=== PATIENT | female | born 1970 | race Caucasian/White ===

== ENCOUNTER 2025-01-15 11:20 | Outpatient (AMB) | payer BC, SELFPAY ==
[2025-01-15 11:46] VITALS: BP 121/80; PULSE 61; RESP 14; TEMP 36.6; O2SAT 96; BMI 27.4
--- NOTE | 2025-01-15 11:46 | AMB.GYNCLNOT ---
Vital Signs 01/15/25 11:46 Height 1.65 m Height Method Stated Weight 74.843 kg Weight Measurement Method Standing Scale BMI 27.4 BP 121/80 Blood Pressure Source Automatic Cuff Blood Pressure Location Right Upper Arm Position Sitting Respiration 14 Pulse 61 Pulse Source Monitor Temp 98 F Temp Source Oral Pulse Oximetry (%) 96 Oxygen Delivery Method Room Air Allergies/Home Meds Allergies & Medications Allergies No Known Allergies Allergy (Verified 01/15/25 11:47) Medication Reconciliation lactobacillus comb no.10 20 billion cell capsule (Probiotic) 20,000 mmu cells PO QDAY 04/28/22 [History Confirmed 01/15/25] propranolol 10 mg tablet 1 tab PO DAILY 04/28/22 [History Confirmed 01/15/25] turmeric 400 mg capsule 1,500 mg PO BID 04/28/22 [History Confirmed 01/15/25] albuterol sulfate 90 mcg/actuation aerosol inhaler (Ventolin HFA) 1 puff inhalation QID PRN Wheezing 05/27/22 [History Confirmed 01/15/25] cyclobenzaprine 5 mg tablet 5 mg PO QHS 01/15/25 [History] estradiol 0.01% (0.1 mg/gram) vaginal cream (Estrace) 0.5 appful vaginal QDAY 2 weeks #42.5 grams 01/15/25 [Rx] estradiol 1 mg-progesterone 100 mg capsule (Bijuva) 1 cap PO QPM #90 caps 01/15/25 [Rx] gabapentin 100 mg capsule 100 mg PO QDAY 01/15/25 [History] Intake Visit Data Collection New Patient or Established: Established Patient (seen at [facility] within 3 years) Reason for Visit:: DISCUSS MENOPAUSE Seen by Clinical Staff ONLY (RN/MA): No Scientist Electronics Required: No Do You Feel Safe at Home: Yes Authorities Contacted: N/A PCP or OBGYN visit in last 3 months: Yes Hx Now: No Are you currently on any form of Control: No Pain Present Currently: No Pain Scale Used: Bolaños-Ford/Numerical Pain scale:: 0 Smoking Status Smoking Status: Never smoker Pr Specialist history Pr Specialist History Age at menarche: 11 Menopausal: Yes If menopausal, at what age did it occur: 52 Years of hormone replacement (if applicable): 0 Currently sexually active: Yes Additional comments: Patient is menopausal. Has not been on hormone replacement therapy. Last menstrual period 2022. 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 Questionnaires Covid-19 Vaccine Questionnaire Has patient been vacinated for Covid-19 Have you been vacinated for Covid-19: No PHQ-9 PHQ-2 Over the last 2 weeks, how often have you been bothered by any of the following problems? 1. Little interest or pleasure in doing things: not at all 2. Feeling down, depressed, or hopeless: not at all Total score: 0 PHQ-9 3. Trouble falling or staying asleep, or sleeping too much: Not at all 4. Feeling tired or having little energy: Not at all 5. Poor appetite or overeating: Not at all 6. Feeling bad about yourself - or that you are a failure or have let yourself or your family down: Not at all 7. Trouble concentrating on things, such as reading the newspaper or watching television: Not at all 8. Moving or speaking so slowly that other people could have noticed? - Or the opposite - being so fidgety or restless that you have been moving around a lot more than usual: not at all 9. Thoughts that you would be better off or of hurting yourself in some way: Not at all Total score: 0 Source: Developed by Drs. Rivera Robles, Tiffani Mcfarland, Alberto Charles and colleagues, with an educational felicia from [employer]. Depression screen completed yes Social History Living Situation History Marital Status: Lives With: Family Housing: House Housing Other:: Her is a physician. 15-year-old daughter, 17-year-old son. Tobacco History Smoking Status: Never smoker Alcohol History Alcohol Intake: Current Domestic Abuse History Do You Feel Safe at Home: Yes History of Present Illness HPI Narrative The patient is a 54-year-old -0-0-2 who used to be my patient in [place]. I have not seen her for a couple of years. She did not release her records from [place] to me. She has a 15-year-old daughter and a 17-year-old son. She is . Her is a physician. Patient presents today to discuss menopause. Her primary care is Dr. Margaret Rodríguez and she was referred from Ana Gatica nurse practitioner at [facility]. She has a lot of physical complaints today. She is reporting hot flashes and difficulty sleeping, she is also reporting joint pain and stiffness. She reports a dry mouth and a funny taste in her mouth. She reports mood swings and brain fog. She reports urinary frequency. She reports dry skin and thin hair. She states her legs hurt from the waist down especially at nighttime and she has to take 3 ibuprofen tablets before bed. She reports restless legs. For her sleeping she has not tried [id number] medication. 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 She also is on a medication because her head shakes. This is propranolol. She is on potassium citrate ER to prevent kidney stones cyclobenzaprine to help with pain in her sleep and gabapentin to also help with leg pain. She was stating she saw Ja recently and wonders what my opinion is on hormone replacement therapy. Her mother did have breast cancer in her late 60s. She is still living in her 80s. Her dad suffered from lung cancer in 2022. The patient states her primary care has worked up her thyroid and its normal she has also been worked up for rheumatological conditions per patient and this was normal. I have no labwork. 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 She also has a history of kidney stones. She has a history of some type of thyroid nodule per records. Review of Systems Constitutional Constitutional: Reports system reviewed and no additional complaints, except as documented and Reports as per HPI Exam General General Appearance: alert, in no apparent distress, comfortable, cooperative and well groomed Chest Chest inspection: Present normal inspection and symmetric chest wall rise Resp Respiratory exam: Present normal lung sounds bilaterally Card Cardiovascular exam: Present regular rate, normal rhythm and normal heart sounds Abdominal Abdominal exam: Present soft and normal bowel sounds Psych Psychiatric exam: Present normal affect and normal mood Skin Skin exam: Present warm, dry, intact and normal color Office Procedures OB Clinic LOC & Office Proc's Nursing/Assessment Patient Status: Established Patient OB Clinic Nursing Assessment: Medication Reconciliation, Update PMH in EMR and Vital Signs OB Clinic Coordination of Care: Complex Care and Chronic Disease 1-5, Consent,records obtained, informed consent, Education Simp Pt/Fam, Lab and Imaging orders, Results/Orders obtained and Staff clarify orders Established Patient Charge Established Patient Point Assignment: 105 Established Patient Point Charge: EP Level 3 (80-115) Assessment & Plan Diagnosis / Problem List (1) Fatigue: Status: Acute Qualifiers: Fatigue type: chronic, unspecified Qualified Code(s): R53.82 - Chronic fatigue, unspecified Assessment and Plan: Check thyroid CBC and parathyroid hormones. (2) Joint pain: Status: Acute Qualifiers: Joint pain location: hip Laterality: bilateral Qualified Code(s): M25.551 - Pain in right hip; M25.552 - Pain in left hip Assessment and Plan: Try HRT. Patient needs to be referred on to rheumatology if this continues. (3) Postmenopausal estrogen deficiency: Status: Acute Assessment and Plan: Patient has hot flashes night sweats mood instability and difficulty sleeping. Try Bijuva HRT and vaginal estrogen cream. Pt aware this might not be covered and will try Good RX (4) Kidney stones: Status: Acute Assessment and Plan: Check calcium phosphorus and parathyroid hormone. History of a thyroid nodule so check all thyroid labs.
== END 2025-01-15 12:52 | disposition home or self-care (01) ==
LOC: HODSOBC 11:20
PROVIDERS: PCP Family Medicine; Referring Provider Family Medicine; Supervising Provider Obstetrics & Gynecology; Visit Provider Obstetrics & Gynecology
DX: N95.8 Other specified menopausal and perimenopausal disorders (principal); N95.1 Menopausal and female climacteric states; R23.2 Flushing; R61 Generalized hyperhidrosis; R53.83 Other fatigue; N20.0 Calculus of kidney; M13.852 Other specified arthritis, left hip; M13.851 Other specified arthritis, right hip; G25.81 Restless legs syndrome; Z87.442 Personal history of urinary calculi; Z80.3 Family history of malignant neoplasm of breast; Z79.899 Other long term (current) drug therapy; I10 Essential (primary) hypertension; Z85.828 Personal history of other malignant neoplasm of skin
CPT/HCPCS: 99213; G0463